=== PATIENT | female | born 1990 | race Two or more races ===

== ENCOUNTER 2024-09-07 12:21 | Emergency (ER) | payer BC, SELFPAY ==
[2024-09-07 13:16] VITALS: BP 107/75; PULSE 89; RESP 18; TEMP 36.7; O2SAT 99; BMI 28.3
--- NOTE | 2024-09-07 13:20 | PD.EDRME ---
Rapid Medical Screening Exam RME Arrival date/time: 09/07/24 12:21 Chief Complaint: Vaginal Bleeding Time Seen by Provider: 09/07/24 12:38 Vital signs: Vital Signs Temperature 98.1 F 09/07/24 13:16 Pulse Rate 89 09/07/24 13:16 Respiratory Rate 18 09/07/24 13:16 Blood Pressure 107/75 09/07/24 13:16 Pulse Oximetry (%) 99 09/07/24 13:16 Oxygen Delivery Method Room Air 09/07/24 13:16 Vital signs reviewed by provider: Yes RME Narrative: 24-year-old female presents for evaluation of vaginal bleeding x 6 weeks. Pt delivered on 07/28 via cesearan with no reported complications. She reports saturating a heavy menstrual pad every 2 hours for the last x 3 days. Denies abdominal pain, dysuria, chest pain, shortness of breath, MCKEON, visual changes. P:3A:0
--- NOTE | 2024-09-07 13:24 | XR_ITS ---
Examination: Transvaginal ultrasound of the pelvis, complete Technique: Transvaginal sonographic images pelvis performed using patel scale imaging Exam date and time: September 07, 2024 1341 hrs. Indications: Bleeding 6 weeks after Findings: Uterus 10.1 x 4.8 x 6.4 cm Endometrial stripe is thickened up to 2.24 cm and heterogeneous Enlarged uterus Right ovary 2.9 x 1.5 cm Left ovary 2.7 x 1.8 cm small follicular cysts Impression: Thickened endometrial stripe consistent with retained products of conception.
[2024-09-07 14:05] LABS: Collection Type, Urine Clean Catch
[2024-09-07 14:15] LABS: Bilirubin,Urine Negative (Negative); Blood,Urine 3+ (Negative); Clarity,Urine Clear (Clear/Hazy); Color,Urine Lt-Yellow (Lt Yel-Yel); Culture Indicated,Urine Not Indicated; Glucose, Urine Negative (Negative); Ketones,Urine Negative (Negative); Leukocyte Esterase,Urine Negative (Negative); Nitrite,Urine Negative (Negative); Protein,Urine Negative (Neg - Trace); RBC,Urine 620 /hpf (0-3); Specific Gravity,Urine 1.017 (1.001-1.035); Squamous Epithelial Cell,Urine 2 /hpf (0-5); Urobilinogen,Urine Negative mg/dL (0.0-1.0); WBC,Urine 1 /hpf (0-5)
[2024-09-07 14:29] LABS: HCG Qualitative,Urine Negative
[2024-09-07 14:52] LABS: Basophils # (Auto) 0.1 Thou/mm3 (0.0-0.2); Basophils % (Auto) 1 % (0-2.5); Eosinophils # (Auto) 0.1 Thou/mm3 (0.0-0.5); Eosinophils % (Auto) 1 % (0-10); Hematocrit 38.3 % (36.0-46.0); Hemoglobin 12.3 g/dL (12.0-16.0); Immature Granulocytes % (Auto) 0 % (0-0); Immature Granulocytes Auto 0.02 Thou/mm3 (0.00-0.00); Lymphocytes # (Auto) 2.7 Thou/mm3 (1.0-4.8); Lymphocytes % (Auto) 26 % (10-50); Mean Corpuscular HGB Conc 32.1 g/dl (31.0-37.0); Mean Corpuscular Hemoglobin 27.7 pg (25.0-35.0); Mean Corpuscular Volume 86 fL (80-100); Monocytes # (Auto) 0.5 Thou/mm3 (0.0-0.8); Monocytes % (Auto) 5 % (0-12); Neutrophils % (Auto) 68 % (37-80); Nucleated Red Blood Cell % 0 /100 WBC (0); Platelet Count 259 Thou/mm3 (140-440); RDW Standard Deviation 38.1 fL (36.4-46.3); Red Blood Count 4.44 Miln/mm3 (4.00-5.20); White Blood Count 10.3 Thou/mm3 (3.6-11.0)
[2024-09-07 15:04] LABS: Partial Thromboplastin Time 29.1 Seconds (22.0-36.0); Prothrombin Time 10.6 Seconds (9.0-12.2)
[2024-09-07 15:16] LABS: Alanine Aminotransferase 54 U/L (10-49); Albumin, Serum 4.5 gm/dL (3.5-5.0); Albumin/Globulin Ratio 1.6 (1.2-2.2); Alkaline Phosphatase 164 U/L (46-116); Anion Gap 5 (7-16); Aspartate Amino Transferase 59 U/L (0-34); BUN/Creatinine Ratio 14 Ratio (12-20); Bilirubin,Total 0.4 mg/dL (0.3-1.2); Blood Urea Nitrogen 10 mg/dL (9-23); Calcium 9.4 mg/dL (8.3-10.6); Calcium (Corrected) 9.4 mg/dL (8.5-10.1); Chloride 106 mMol/L (98-107); Creatinine (Component) 0.7 mg/dL (0.6-1.3); Estimated Creatinine Clearance 93.5 mL/min (>60); Globulin 2.8 gm/dL (2.3-3.5); Glucose 87 mg/dL (74-106); Osmolality,Calculated 273 (275-295); Sodium 138 mMol/L (136-145); Total Protein 7.3 gm/dL (5.7-8.2); eGFR > 60 See Note
[2024-09-07 16:21] VITALS: BP 115/77; PULSE 93; RESP 17; TEMP 36.7; O2SAT 99
--- NOTE | 2024-09-07 17:02 | PC.NURSE ---
PATIENT AT COUNTER ASKING TO SIGN OUT AMA, PATIENT STATES SHE UNDERSTANDS ALL RIGHTS UP TO AND INCLUDING . PATIENT STATES SHE WILL FOLLOW UP WITH PMD AND RETURN TO ED FOR FURTHER CONCERNS. AMBridgett SIGNED.
== END 2024-09-07 16:30 | disposition left against medical advice (07) ==
PROVIDERS: Physician Assistant; Emergency Provider Emergency Medicine; PCP Family Medicine
DX: O72.2 Delayed and secondary postpartum hemorrhage (principal); Z53.29 Procedure and treatment not carried out because of patient's decision for other reasons
CPT/HCPCS: 36415; 76830; 80053; 81001; 81025; 85025; 85610; 85730; 86850; 86900; 86901; 99281

== ENCOUNTER 2024-09-24 11:13 | Outpatient (AMB) | payer BC, MEDICAID, SELFPAY ==
[2024-09-24 11:30] VITALS: BP 109/62; PULSE 66; RESP 18; TEMP 36.6; O2SAT 97; BMI 28.9
--- NOTE | 2024-09-24 11:30 | PD.GSCLVISIT ---
Vital Signs - [facility] 09/24/24 11:30 Height 1.5 m Height Method Stated Weight 64.92 kg Weight Measurement Method Standing Scale BMI 28.9 BP 109/62 Blood Pressure Source Automatic Cuff Blood Pressure Location Left Upper Arm Position Sitting Respiration 18 Pulse 66 Pulse Source Monitor Temp 97.8 F Temp Source Temporal Artery Scan Pulse Oximetry (%) 97 Oxygen Delivery Method Room Air Med/Allergies Allergies & Medications Allergies No Known Allergies Allergy (Verified 09/24/24 11:32) Medication Reconciliation vits no.126-ferrous fum 28 mg iron-folic acid 800 mcg tablet (Classic ) 1 tab PO QDAY 06/18/24 [History Confirmed 09/24/24] hydrocodone 5 mg-acetaminophen 325 mg tablet 1 tab PO Q6H PRN pain #20 tabs 07/28/24 [Rx Confirmed 09/24/24] hydrochlorothiazide 25 mg tablet 25 mg PO QDAY PRN lower leg swelling #10 tabs 07/29/24 [Rx Confirmed 09/24/24] hydrocortisone acetate 25 mg rectal suppository (Anusol-HC) 25 mg CA QHS #24 ea 09/24/24 [Rx] loratadine 10 mg capsule (Allergy Relief (loratadine)) 10 mg PO QDAY 09/24/24 [History Confirmed 09/24/24] MA Intake Visit Data Collection New Patient or Established: Established Patient (seen at [facility] within 3 years) Seen by Clinical Staff ONLY (RN/MA): No Reason for Visit:: REFERRAL [place] Pain Present Currently: No 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 PCP or OBGYN visit in last 3 months: Yes Hx Now: No Do You Feel Safe at Home: Yes Authorities Contacted: N/A Smoking Status Smoking Status: Never smoker Immunization / Flu Flu Vaccine in the Last 12 Months: No Flu Vaccine Exclusion Criteria: Refused by Patient Past Medical History Past Medical History NEUROLOGIC: Positive Seizures; Negative Neurological Disorders CARDIAC: Negative Cardiac Disorders or Congestive Heart Failure RESPIRATORY: Negative Chronic Obstructive Pulmonary Disease (COPD) GASTROINTESTINAL: Negative Gastrointestinal Disorders, Hepatitis or Colorectal Cancer GENITOURINARY: Negative Genitourinary Disorders or Renal Disease REPRODUCTIVE: Positive Previous Pregnancies; Negative Breast Cancer MUSCULOSKELETAL: Negative Bone Cancer or Carpal Tunnel Syndrome ENDOCRINE: Negative Endocrine Disorders, Diabetes Mellitus Type 1 or Diabetes Mellitus Type 2 HEMATOLOGIC: Negative Anemia or Clotting Problems OTHER HISTORY: Negative Falls, Blood Transfusions, Blood Transfusion Reaction, Anesthesia Reactions, Organ Transplant, MRSA, Chicken Pox, Cancer, Breast Cancer, Cervical Cancer, Colorectal Cancer, Lung Cancer or Ovarian Cancer Family History FAMILY HISTORY: Negative Family Psychiatric Problems, Family Respiratory Disorders, Family Cardiac Disorders, Family Gastrointestinal Problems, Family Cancer, Family Surgery or Family Anesthesia Reaction Surgical History SURGICAL: Positive Eye Surgery; Negative Cardiac Surgery, Endocrine Surgery, Abdominal Surgery, Joint Replacement, Amputation, Open Reduction Internal Fixation, Arthroscopy, Brain Shunt, Mastectomy, Lumpectomy, Hysterectomy, Tubal Ligation, Section or Organ Transplant Social History SMOKING STATUS: Smoking status: Never smoker ALCOHOL: Alcohol Intake: Never HOUSING: Housing: House LIVES WITH: Lives With: Family HPI HPI Narrative 34F referred for hemorrhoids. 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 Since this second pt has noted occasional perianal discomfort; she was prescribed a cream which she feels helps somewhat but has not tried sitz baths or any other remedy. Pt states that at baseline she has a BM every 2 days or so but they tend to be soft, without any straining or diarrhea. Pt denies any bleeding or itching, just generally feels that there is something a bit bothersome in the perianal region. She denies any changes in stool caliber, anorexia and unintentional weight loss PMH: HTN PSHx: Csection Meds: No antiplt or anticoagulation Allergies: NKDA Social hx: Nonsmoker ROS Review of Systems Systems Reviewed: All systems reviewed, normal except as documented Objective/Exam General General Appearance: alert, cooperative and well groomed Resp Respiratory exam: Absent respiratory distress Rectal Rectal exam: Present other (small external hemorrhoid, minimal internal hemorrhoids, normal MIKI, no bleeding) Assessment & Plan Diagnosis / Problem List (1) Hemorrhoids: Status: Acute Assessment & Plan: 34F presenting with hemorrhoids which are minimally symptomatic. Pt states her daily activities are not negatively affected and she has not tried all remedies; I explained that surgery could be undertaken but given her minimal symptoms it may confer more risk than benefit. Pt expressed understanding, would like to try suppositories and follow up in 2 months as she also recently started a new job and will not be able to take time off soon. All questions were answered and pt is agreeable to this plan Office Procedures GNS Level of Care Nursing/Assessment Patient Status: Established Patient Nursing Assessment/Reassesment: Medication Reconciliation, Update PMH in EMR and Vital Signs Coordination of Care: Complex Care and Chronic Disease 1-5, Consent,records obtained, informed consent, Education Simp Pt/Fam, 1 Ins Authorization, Results/Orders obtained and Staff clarify orders Established Patient Charge Established Patient Point Assignment: 105 Established Patient Point Charge: EP Level 3 (80-115) Patient Portal Questionaires Social History Living Situation History Housing: House Tobacco History Smoking Status: Never smoker Alcohol History Alcohol Intake: Never Domestic Abuse History Do You Feel Safe at Home: Yes Review of Systems Report any current symptoms Only answer those that you have currently: Past Medical History Past Medical History Have you ever been diagnosed with any of the following: Neurological Problems Seizures: Yes Cardiology Problems Congestive Heart Failure: No Respiratory Problems Chronic Obstructive Pulmonary Disease (COPD): No Stomache/Intestinal Problems Hepatitis: No Colorectal Cancer: No Genital/Urinary Problems Renal Disease: No Reproductive Problems Breast Cancer: No Previous Pregnancies: Yes Musculoskeletal Problems Bone Cancer: No Carpal Tunnel Syndrome: No Endocrine Problems Diabetes Mellitus Type 1: No Diabetes Mellitus Type 2: No Blood Problems Anemia: No Clotting Problems: No Other Problems Falls: No Blood Transfusions: No Blood Transfusion Reaction: No Anesthesia Reactions: No Organ Transplant: No MRSA: No Chicken Pox: No Cancer: No Cervical Cancer: No Lung Cancer: No Ovarian Cancer: No Surgical History Hysterectomy: No
== END 2024-09-24 12:27 | disposition home or self-care (01) ==
LOC: HODSRG 11:13
PROVIDERS: PCP Family Medicine; Referring Provider Family Medicine; Supervising Provider Surgery; Visit Provider Surgery
DX: K64.9 Unspecified hemorrhoids (principal)
CPT/HCPCS: 99213; G0463